=== PATIENT | female | born 1995 | race Caucasian/White ===

== ENCOUNTER 2024-02-03 22:08 | Emergency (ER) | payer MEDICAID ==
[~2024-02-03] VITALS: Ht 170.2 cm; Wt 80.0 kg
[2024-02-03 22:13] VITALS: O2SAT 100
[2024-02-03 22:29] VITALS: TEMP 98.3; O2SAT 100
[2024-02-04 01:14] VITALS: BP 125/79; PULSE 80; RESP 18
[2024-02-04] MEDS: HYDROCODONE/ACETAMINOPHEN 5/325MG TABLET PO ONE (01:14)
== END 2024-02-04 01:33 | disposition left against medical advice (07) ==
LOC: ER 22:08
DX: R07.89 Other chest pain (principal); Z98.890 Other specified postprocedural states; V49.59XA Passenger injured in collision with other motor vehicles in traffic accident, initial encounter; Y93.89 Activity, other specified; Y92.89 Other specified places as the place of occurrence of the external cause; Y99.8 Other external cause status
CPT/HCPCS: 71045; 93005; 99283